=== PATIENT | female | born 2005 | race Caucasian/White ===

== ENCOUNTER 2025-01-23 11:08 | Day surgery (SDC) | payer OTHER, SELFPAY ==
--- NOTE | 2025-01-20 12:22 | PCM.HP.BLA ---
History and Physical Date of Admission: 01/23/25 Expand All Collapse All Pre-Op History and Physical HPI: The patient is a 19 year old female presenting for discussion regarding AUB- pt states despite aygestin bleeding is still irregular- which has been all of her life. Pt ultrasound shows ? Polycystic ovaries and EM polyp. pre-operative visit. She is scheduled for Hysteroscopy D&C and polypectomy with symphion, for AUB, endometrial polyp on 01/23/25. Procedure discussed along with risks, benefits and complications. Other alternatives discussed for management. Consent form signed? Yes. PAST MEDICAL HISTORY PAST MEDICAL HISTORY Diagnosis Date ? Acute otitis media ? Conjunctivitis ? Dermatitis - bilateral hands ? Foot pain ? Otalgia ? Pyelonephritis, acute ? Urinary tract infectious disease PAST SURGICAL HISTORY PAST SURGICAL HISTORY Procedure Laterality Date ? ELBOW SURGERY HX 2007 Left ? MYRINGOTOMY Bilateral 2009 ? TONSILLECTOMY AND ADENOIDECTOMY HX ? TONSILLECTOMY HX CURRENT MEDICATIONS Current Outpatient Medications Medication Sig Dispense Refill ? norethindrone (AYGESTIN) 5 mg tablet Take 1 tablet by mouth once daily. 30 tablet 0 ? triamcinolone acetonide (NASACORT AQ) 55 mcg nasal inhaler Use 2 Sprays in the nose once daily. 1 Each 1 No current facility-administered medications for this visit. ALLERGIES: Patient has no known allergies. PERSONAL HISTORY: SOCIAL HISTORY Social History Tobacco Use ? Smoking status: Never ? Smokeless tobacco: Never ? Tobacco comments: Exposure to smoking No exposure to environmental tobacco smoke Vaping Use ? Vaping status: Never Used Substance Use Topics ? Alcohol use: Never ? Drug use: Never FAMILY HISTORY: FAMILY HISTORY FAMILY HISTORY Problem Relation Age of Onset ? Hypertension Father ? Cancer Father ? other (wilms tumor) Father ? Polycystic Ovary Syndrome Sister ? Heart Maternal Grandmother ? other (sudden cardiac ) Maternal Grandmother 61 ? Hypertension Paternal Grandfather ? other (heart disease) Maternal Aunt 61 ? other (sudden ) Maternal Uncle 35 REVIEW OF SYMPTOMS: negative except as noted above PHYSICAL EXAMINATION: VITALS: Blood pressure 120/72, height 165.1 cm (5' 5), weight 106.1 kg (234 lb), last menstrual period 11/28/2024. GENERAL: The patient is well nourished, well hydrated in no acute distress. , The patient is oriented to time, place, and person. NECK: Supple. Full range of motion LUNGS: Clear to auscultation bilaterally. no wheezes, rhonchi or rales HEART: Regular rate and rhythm, Normal heart sounds, and No murmurs or gallops IMPRESSION: 19yo with AUB, endometrial polyp PLAN: Hysteroscopy, D&C, polypectomy with symphion Pt has been counseled on risks/benefits and alternatives of surgery including but not limited to anesthesia, bleeding, infection,uterine perforation with subsequent injury to pelvic structures including bowel, bladder, ureters and vessels. Pt wishes to proceed with surgery at this time. Pre and post op instructions reviewed Pre op labs CBC and TSH I have reviewed and updated past medical and surgical history, medications and allergies Elinor Abebe MD Office Visit on 01/14/2025 Note viewed by patient
[2025-01-20 13:05] LABS: Hemoglobin 14.1 g/dL (12.0-15.0); Mean Corp Hgb Conc 33.6 g/dL (32-36); Mean Corpuscular Hgb 29.3 pg (27.0-32.0); Mean Corpuscular Volume 87.1 fL (81-99); Platelet Count 476 K/mm3 (150-450); RBC Distribution Width CV 12.3 % (11.6-14.6); RBC Distribution Width SD 39.6 fl (35.1-43.9); Red Blood Count 4.82 M/mm3 (4.2-5.4); White Blood Count 10.6 K/mm3 (4.4-11.0)
[2025-01-20 15:09] LABS: Thyroid Stim Hormone (TSH) 0.035 uIU/mL (0.300-4.200)
[2025-01-23] VITALS (10 sets, daily range): BP systolic 107–135; BP diastolic 65–80; PULSE 78–103; RESP 14–18; TEMP 36.8–37.1; O2SAT 97–99; BMI 38.9
[2025-01-23 12:32] LABS: Internal QC Validated? YES +Cl - CLEAR BKGD
[2025-01-23 12:33] LABS: Pregnancy, Urine Negative Negative
[2025-01-23] MEDS: Lactated Ringers 1,000 ML 15 ML IV (12:38)
--- NOTE | 2025-01-23 12:56 | PCM.PRE.AN2 ---
ASA Classification* ASA Classification ASA Classification: 2 Assessment & Plan Anesthesia* Anesthesia Assessment Anesthesia Assessment: Discussed sedation and/or anesthesia options, risks, benefits, and alternatives with patient/parents/legal guardian/POA. Questions invited. The patient/parents/legal guardian/POA seems to understand and agrees to proceed with anesthesia plan. Reviewed the physical assessment, medical history, allergy history and patient home medications list prior to surgery/procedure/anesthetic and documented any changes. Performed airway and anesthesia risk assessments. Anesthesia Type Anesthesia Type: MAC Anesthesia Focused Assessment* Temperature: 98.3 F Pulse Rate: 103 Blood Pressure: 135/80 Respiratory Rate: 16 Pulse Ox: 99 Airway Assessment Mouth opens: >3 cm Mallampati Score: II Focused Labs Anesthesia Preop lab: CBC WBC 10.6 K/mm3 (4.4-11.0) 01/20/25 12:48 01/20/25 RBC 4.82 M/mm3 (4.2-5.4) 01/20/25 12:48 01/20/25 Hgb 14.1 g/dL (12.0-15.0) 01/20/25 12:48 01/20/25 Hct 42.0 % (37-47) 01/20/25 12:48 01/20/25 Plt Count 476 K/mm3 (150-450) H 01/20/25 12:48 01/20/25 CHEMISTRY TSH 0.035 uIU/mL (0.300-4.200) L 01/20/25 12:48 01/20/25 COAG Urine Test Negative Negative 01/23/25 12:20 01/23/25 Pre-Assessment Diagnosis/Proposed Procedure Planned Operative Procedure(s): HYSTERSCOPY, DILATION AND CURETTAGE, POLYPECTOMY WITH SYMPHION Anesthesia History Anesthesia History - therapeutic consultant: Anesthesia History - therapeutic consultant Hx Hospitalization No 01/20/25 11:29 Any Problems With Anesthesia No 01/20/25 11:29 Cholinesterase deficiency No 01/20/25 11:29 You/Your Family Experience No 01/20/25 11:29 fever (hyperthermia) with Relationship Recent Exposure to Contagious No 01/23/25 12:25 Disease Does patient have nerve No 01/20/25 11:29 stimulator Patient instructed to have device shut off --Does patient have Pacemaker No 01/23/25 12:25 or ICD? When Was Last Pacemaker Check QUESTION #4 FULL TEXT: You/Your Family Experience fever (hyperthermia) with Anesthesia Last Oral Intake Last Oral intake: Last Oral Intake NPO since 20:00 01/23/25 12:25 Meds taken in AM with sips of No 01/23/25 12:25 water? Meds patient instructed to take am of surgery PONV PONV - therapeutic consultant: PONV - therapeutic consultant Female Yes 01/20/25 11:29 HX of Motion Sickness No 01/20/25 11:29 HX of N/V After Surgery No 01/20/25 11:29 Non-Smoker Yes 01/20/25 11:29 Duration of Surgery greater No 01/20/25 11:29 than 60 minutes Number of Risk Factors 2 01/20/25 11:29 PONV Score Moderate Risk 01/20/25 11:29 Height & Weight Height & Weight: Anesthesia: Height & Weight Height 5 ft 5 in 01/23/25 12:25 Weight: 106 kg 01/23/25 12:25 Body Mass Index (BMI) 38.9 01/23/25 12:25 Respiratory Assessment Respiratory Assessment - therapeutic consultant: Respiratory Tract Infection Hx - therapeutic consultant Hx Respiratory Tract Infection No 01/20/25 11:29 STOP Sleep Apnea STOP Sleep Apnea - therapeutic consultant: STOP Sleep Apnea - therapeutic consultant Hx Hypertension No 01/20/25 11:29 Hx Sleep Apnea No 01/20/25 11:29 CPAP BIPAP Do you snore loudly (louder No 01/20/25 11:29 than talking or can be heard Do you often feel tired/ No 01/20/25 11:29 fatigued/ sleepy during daytime? Has anyone observed you stop No 01/20/25 11:29 breathing during sleep? STOP Results Negative 01/20/25 11:29 QUESTION #5 FULL TEXT : Do you snore loudly (louder than talking or can be heard through closed doors)? Tobacco Use History Tobacco Use History - therapeutic consultant: Tobacco Use History - therapeutic consultant Tobacco Use Smoking Status Never smoker 01/20/25 11:29 Hx Tobacco Use No 01/20/25 11:29 Years Smoking Packs Smoked per Day Smoking Cessation Date was within the last 15 years Hx Smoking Cessation Date Hx Smoking Cessation Counseling Hematologic Medial History Hematologic Hx - therapeutic consultant: Hematologic Medical Hx - soundscriber mechanic Hx of Blood Transfusion No 01/20/25 11:29 Hx of Transfusion in last 3 No 01/20/25 11:29 Months Date of Last Transfusion (if within last 3 months) Ever experience any problems No 01/20/25 11:29 with transfusion(s)? Specify any problems Hx of Preganancy in last 3 No 01/20/25 11:29 Months Nurse Filling Out Transfusion [facility] 01/20/25 11:29 & Questions: Date: 01/20/25 01/20/25 11:29 Time: 11:31 01/20/25 11:29 Patient unable to answer at this time (ie. confused, unrespo /Reproduction History /Reproductive History - therapeutic consultant: /Reproductive Hx- therapeutic consultant Hx Now No 01/20/25 11:29 Gestational Age (in weeks): EDC: Hx Hx Para Hx Section SAB No 01/20/25 11:29 Active Medications Active Medications: Current Medications Generic Name Dose Route Start Last Admin Trade Name Freq PRN Reason Stop Dose Admin Lactated Ringer's 1,000 mls @ 15 mls/hr 01/23/25 12:15 01/23/25 12:38 IV 15 mls/hr .Q48H JENNIFER Administration PFSH Medical History Wears contact lenses Wears glasses Non-smoker Home Medications ?Medication ?Instructions ?Recorded ?Last Taken ?Type cholecalciferol (vitamin D3) 50 50 mcg PO DAILY 01/20/25 Unknown History mcg (2,000 unit) tablet (D3 DOTS) multivitamin (Daily Multi-Vitamin 1 tab PO DAILY 01/20/25 Unknown History tablet) norethindrone acetate 5 mg tablet 5 mg PO DAILY 01/20/25 Unknown History Allergy/AdvReac Type Severity Reaction Status Date / Time No Known Allergies Allergy Verified 01/23/25 12:25 Surgical History History of myringotomy History of tonsillectomy and adenoidectomy Social History Smoking Status: Never smoker Review of Systems (Anesthesia) ROS Narrative System reviewed and no additional complaints, except as documented.
--- NOTE | 2025-01-23 13:07 | DCINST_ITS ---
Discharge Instructions Diet Discharge Diet: No restrictions DC O2, CPAP, BIPAP needs Home O2 Discharge instructions: No Dressing / Incision May resume sexual activity in: 1 week Dressing / Incision Call your doctor if you observe: Fever of 101 or Higher, Inability to urinate, Using more than 1 pad per hour and Uncontrolled pain Follow Up Care Please Follow Up With: Elinor Meade MD When: I will call you with pathology results in 1-2 weeks, if you feel you need an appointment please call [phone] Test Results: Test results from this visit will be discussed in further detail at your follow- up appointment, if applicable. Discharge Plan Admission Attending Provider: Elinor Meade Primary Care Provider: Care Physician,No Primary Instructions Print Language: Estonian Discharge Orders/Prescriptions Prescriptions: No Action norethindrone acetate 5 mg tablet 5 mg PO DAILY multivitamin [Daily Multi-Vitamin] Tablet 1 tab PO DAILY cholecalciferol (vitamin D3) [D3 DOTS] 50 mcg (2,000 unit) tablet 50 mcg PO DAILY Referrals / Follow Up: Naren Costello MD [Non-Staff] - Disposition Disposition (needs filled in before D/C Order can be placed): Home, Self Care
--- NOTE | 2025-01-23 13:23 | PCM.OPRPT ---
Operative Report (Standard) Operative Information Date of Procedure: 01/23/25 Pre-Operative Diagnosis: AUB, endometrial polyp Post-Operative Diagnosis: same , endocervical polyp Surgery/Procedure Performed: Hysteroscopy ,D&C, polypectomy drywall hanger helper: Yes Hydrometeorology Teacher: dilip almaraz ms3 Tasks completed by first front ventilator: Retracting Type of Anesthesia: MAC RN Documented Start/Stop Times: Operation Date: 01/23/25 13:40 Case Time Into Pre-Op 01/23/25 12:13 Procedure Start Time: 13:45 Procedure Stop Time: 13:58 Select all DRAINS/GRAFTS/IMPLANTS that apply: None Estimated Blood Loss: <5cc Fluids Replaced: 1000 Specimen collected: Yes Description of specimen(s) removed: endometrial currettings, endocervical polyp Description of surgery: informed consent was obtained the patient was taken the operating room she was placed in supine position. She was given anesthesia. She was then placed in the [facility] where she was prepped and draped in the normal sterile fashion. At this time the weighted speculum was placed in the posterior fornix of vagina. Single-tooth tenaculum was used to gently grasp the anterior lip the cervix. At this time the uterine cavity was sounded to approximately 7 cm. Gentle dilatation was performed once adequate dilatation of the cervix was achieved the hysteroscope using normal saline as a distention medium was placed. Tubal ostia not visualized due to thickened tissue . Symphion resecting device used to obtain endometrial curettings and to perform polypectomy. Tissue will be sent to pathology for evaluation. Tenaculum removed. Good hemostasis. Instrument, lap count correct x 2. Vaginal Sweep was negative. Surgical Findings: thickened endometrial tissue- pt is currently menstruating Endocervical polyp. Complications Complications: No Admit VTE Documentation VTE Present on Admission: Yes VTE Mechan Device Prophylaxis: SCD's VTE Pharm Prophylaxis ordered?: No Reason prophylaxis not ordered: Treatment Not Indicated
--- NOTE | 2025-01-23 13:40 | EMB_PTH ---
PATIENT: SHIMON GRIFFIN LOC: [facility] U#:[id number] AGE/SX: 19/F ROOM: RE01/23/[address]: Dr. Elinor Meade, MDDOB: 2005 BED: DIS: 01/23/2025 SPEC #: [id number] RECD: 01/23/25 17:24 STATUS: STEPHAN SARAH #: [id number] BAILEY: 01/23/25 13:[address]: Elinor Meade DEPT: SURGICAL PATHOLOGY RECD BY: Shilpa Haines ENTERED: 01/26/25 07:29 SP TYPE: ENDOM BX/C DARCY DR: No Primary Care Phys Tissues: Endometrium, NOS Procedures: Surgery Specimen Level IV HEADER OPERATION: Hysteroscopy, polypectomy PRE-OP DIAGNOSIS: Endometrial polyp TISSUE SUBMITTED: A- Endocervical polyp / endometrial curettings MICROSCOPIC DIAGNOSIS A. Endocervix/endometrium, polypectomy and curettage: * Endometrial polyp. * Fragments of secretory endometrium, endocervix, and smooth muscle. MICROSCOPIC DESCRIPTION Slides are reviewed. GROSS DESCRIPTION A. Received in formalin in a container labeled with the patient's name, date of , and endocervical polyp/endometrial curettings is a pink-aragon, unoriented, and polypoid piece of soft tissue measuring 1.5 x 0.9 x 0.4 cm. The 0.4 x 0.3 cm possible resection margin is inked black, and it is quadrisected to reveal west-pink, uniform, and rubbery surfaces. Received in the same container are multiple west-pink fragments of soft tissue admixed with blood and mucus measuring 2.5 x 1.7 x 1.3 cm in aggregate. The specimen is submitted entirely as follows:A1. Polypoid fragment, quadrisectedA2-4. Smaller soft tissue fragments [facility] 01-26-2025 CPT:[id number]
--- NOTE | 2025-01-23 14:12 | PCM.POST.ANE ---
Anesthesia: Postop Eval I Current Vital Signs Temperature: 98.4 F Pulse Rate: 92 Blood Pressure: 118/74 Respiratory Rate: 18 Pulse Ox: 97 Assessment Airway patent: Yes Spontaneous unlabored respirations: Yes nausea: No Vomiting: No Anesthesia Complication: No Fluid Hydration Crystalloid volume administer (ml): 1,000 Total IV fluid infused: 1,000 Progress Note Anesthesia document: Postop Eval 1 completed: Yes
--- NOTE | 2025-01-23 15:15 | POSTOPAN2_ITS ---
Anesthesia Postop Eval I Sum Postop Eval Completion status Anesthesia document: Postop Eval 1 completed: Yes Anesthesia Postop Eval I Summary Anesthesia Postop Eval I Summary: Anesthesia Postop Eval I: Assessment Summary Airway patent Yes 01/23/25 14:12 GASTROENTEROLOGY TECHNICIAN.CSIR Spontaneous unlabored Yes 01/23/25 14:12 GASTROENTEROLOGY TECHNICIAN.CSIR respirations Mental status nausea No 01/23/25 14:12 GASTROENTEROLOGY TECHNICIAN.CSIR Vomiting No 01/23/25 14:12 GASTROENTEROLOGY TECHNICIAN.CSIR Anesthesia Postop Eval I: Fluid Summary Crystalloid volume administer 1,000 01/23/25 14:12 GASTROENTEROLOGY TECHNICIAN.CSIR (ml) Colloids volume administered ( ml) Blood Product volume administered (ml) Total IV fluid infused 1,000 01/23/25 14:12 GASTROENTEROLOGY TECHNICIAN.CSIR Anesthesia Postop Eval I: Summary Notes Anesthesia Complication No 01/23/25 14:12 GASTROENTEROLOGY TECHNICIAN.CSIR Anesthesia Complication Comment: Post-operative progress note Anesthesia: Postop Eval II Evaluation Mental status: Awake Pain Level: 0 nausea: No Vomiting: No
--- NOTE | 2025-01-23 15:15 | PCM.POSTANE2 ---
Anesthesia Postop Eval I Sum Postop Eval Completion status Anesthesia document: Postop Eval 1 completed: Yes Anesthesia Postop Eval I Summary Anesthesia Postop Eval I Summary: Anesthesia Postop Eval I: Assessment Summary Airway patent Yes 01/23/25 14:12 OUTBOUND TELEMARKETING REPRESENTATIVE.CSIR Spontaneous unlabored Yes 01/23/25 14:12 OUTBOUND TELEMARKETING REPRESENTATIVE.CSIR respirations Mental status nausea No 01/23/25 14:12 OUTBOUND TELEMARKETING REPRESENTATIVE.CSIR Vomiting No 01/23/25 14:12 OUTBOUND TELEMARKETING REPRESENTATIVE.CSIR Anesthesia Postop Eval I: Fluid Summary Crystalloid volume administer 1,000 01/23/25 14:12 OUTBOUND TELEMARKETING REPRESENTATIVE.CSIR (ml) Colloids volume administered ( ml) Blood Product volume administered (ml) Total IV fluid infused 1,000 01/23/25 14:12 OUTBOUND TELEMARKETING REPRESENTATIVE.CSIR Anesthesia Postop Eval I: Summary Notes Anesthesia Complication No 01/23/25 14:12 OUTBOUND TELEMARKETING REPRESENTATIVE.CSIR Anesthesia Complication Comment: Post-operative progress note Anesthesia: Postop Eval II Evaluation Mental status: Awake Pain Level: 0 nausea: No Vomiting: No
== END 2025-01-23 16:00 | disposition home or self-care (01) ==
LOC: SDC 11:10 → AC 12:00
PROVIDERS: Referring Provider Obstetrics & Gynecology; Visit Provider Obstetrics & Gynecology
PROC: 0UB98ZZ Excision of Uterus, Via Natural or Artificial Opening Endoscopic (ICD-10-PCS; CPT 58558; principal; 2025-01-23 13:25)
DX: N84.0 Polyp of corpus uteri (principal); N93.9 Abnormal uterine and vaginal bleeding, unspecified; E28.2 Polycystic ovarian syndrome; N84.1 Polyp of cervix uteri
CPT/HCPCS: 58558; 00952; 36415; 81025; 84443; 85027; 88305; J2405